=== PATIENT | female | born 1985 | race Caucasian/White ===

== ENCOUNTER 2024-10-25 05:28 | Emergency (ER) | payer SELFPAY ==
[2024-10-25] VITALS (18 sets, daily range): BP systolic 101–123; BP diastolic 54–79; PULSE 55–76; RESP 18; TEMP 36.2–36.7; O2SAT 96–99
--- NOTE | 2024-10-25 05:30 | RT.EKG_ITS ---
APPROVED REPORT Exam: Resting ECG Reason for Exam: epigastric pain Patient Location: E HR:61 bpm ECG Measurements Heart Rate 61 AXIS DC 137 P 64 QRSd 84 QRS 50 QT 405 T 38 QTc 410 Conclusion Sinus rhythm...normal P axis, V-rate 60- 99 Anteroseptal infarct, old...Q >40mS, V1-V2 I have reviewed and interpreted ECG and agree with software generated interpretation.
--- NOTE | 2024-10-25 05:42 | W.ED.GENAD ---
Discharge Plan Disposition Patient Disposition: Home Condition: Good Discharge Details Clinical Impression: Gastric irritation ED Provider: Joel Oliver Home Meds and New Rx's Prescriptions: New sucralfate [Carafate] 1 gram tablet 1 g PO BID Qty: 60 0RF pantoprazole [Protonix] 40 mg tablet,delayed release (DR/EC) 40 mg PO DAILY Qty: 60 0RF Discharge Instructions Instructions: Gastric Ulcer ED Additional Instructions: At this time your workup has returned reassuring. There is concern that your symptoms are being caused by gastric ulcer. Please avoid spicy foods, tomato-based foods, and citrus foods. Please take the medications as directed. If you notice any worsening of your symptoms, or any new symptoms such as vomiting, diarrhea, fever, chills, shortness of breath, chest pain, numbness, weakness, or fainting , please return immediately to the emergency department for reevaluation. Please follow up with your primary care provider as soon as possible for reassessment and reevaluation. As always, it was a pleasure participating in your medical care today. HPI General Date/Time Provider Initiated Documentation: 10/25/24 05:31. HPI Narrative: This is a very pleasant 39-year-old female with no significant past medical history except for tubal ligation, anxiety, bipolar, depression, ADHD and OCD, and PTSD who presents today for evaluation of epigastric stabbing sensation. It has been present for the last week, and is worse when she eats food, and improved when she lays down. She states that the pain comes and goes, does not radiate anywhere else. She denies any chest pain or shortness of breath. She denies any vomiting but does admit to nausea. She drinks a cup or 2 of coffee a day. She did denies any excessive spicy food or tomato-based product consumption. She states she has been under a fair bit of stress lately. Family history is positive for cardiac disease in her father. She denies any other complaints at this time. She denies any excessive alcohol use. Related Data Home Medications ?Medication ?Instructions ?Recorded ?Confirmed pantoprazole 40 mg tablet,delayed 40 mg PO DAILY #60 tabs 10/25/24 release (Protonix) sucralfate 1 gram tablet (Carafate) 1 g PO BID #60 tabs 10/25/24 Previous Rx's ?Medication ?Instructions ?Recorded pantoprazole 40 mg tablet,delayed 40 mg PO DAILY #60 tabs 10/25/24 release (Protonix) sucralfate 1 gram tablet (Carafate) 1 g PO BID #60 tabs 10/25/24 Allergies Allergy/AdvReac Type Severity Reaction Status Date / Time peanut Allergy Anaphylaxis Verified 10/25/24 06:04 tree nut Allergy Anaphylaxis Verified 10/25/24 06:04 morphine AdvReac Agitation Verified 10/25/24 06:04 General Stated Complaint: Abd Prob ARON: 3 Exam Narrative Exam Narrative: 1.Const: Well-nourished, Well-developed, appearing stated age 2.Eyes: PERRL, no conjunctival injection, and symmetrical lids. 3.ENT: Atraumatic external nose and ears. Moist MM. Neck: Symmetric, trachea midline, No thyromegaly. 4.CVS: +S1/S2, Peripheral pulses 2+ and equal in all extremities. Brisk capillary refill in all extremities. 5.RESP: Unlabored respiratory effort. Clear to auscultation bilaterally. No wheezes rales or rhonchi 6.GI: Soft, Nontender/Nondistended, No hepatosplenomegaly. No guarding or rebound. 7.MSK: Normocephalic/Atraumatic, Extremities w/o deformity or ttp No cyanosis or clubbing, Normal movement of all extremities 8.Skin: Warm, Dry. No rashes or lesions. 9.Neuro: quality liaison II-XII grossly intact. Sensation grossly intact, no focal neurologic deficits. 10.Psych: (AAO) x3. Appropriate mood and affect Course Vital Signs Vital signs: Vital Signs Temperature 36.2 C L 10/25/24 05:31 Pulse 73 10/25/24 05:31 Respiratory Rate 18 10/25/24 05:31 Blood Pressure 120/77 10/25/24 05:31 Pulse Oximetry 98 10/25/24 05:31 Temperature 36.2 C L 10/25/24 05:31 Pulse 70 10/25/24 05:34 Respiratory Rate 18 10/25/24 05:34 Blood Pressure 120/77 10/25/24 05:34 Pulse Oximetry 98 10/25/24 05:34 Pain Level 6 10/25/24 05:31 Medical Decision Making This is a very pleasant 39-year-old female with no significant past medical history except for tubal ligation, anxiety, bipolar, depression, ADHD and OCD, and PTSD who presents today for evaluation of epigastric stabbing sensation. It has been present for the last week, and is worse when she eats food, and improved when she lays down. She states that the pain comes and goes, does not radiate anywhere else. She denies any chest pain or shortness of breath. She denies any vomiting but does admit to nausea. She drinks a cup or 2 of coffee a day. She did denies any excessive spicy food or tomato-based product consumption. She states she has been under a fair bit of stress lately. Family history is positive for cardiac disease in her father. She denies any other complaints at this time. She denies any excessive alcohol use. Exam demonstrates well-appearing female, in no guarding or rebound in the abdomen. Negative Regalado sign. No pain at McBurney's point. Minimal achiness in the left upper quadrant. Differential is highest for gastric ulcer. Timing of symptomatology appears less consistent with duodenal ulcer. Symptoms inconsistent with severe pancreatitis, but mild pancreatitis remains on the differential. Will evaluate for these etiologies, give Carafate, Protonix, GI cocktail. We will treat her nausea with Zofran. Will get a screening EKG and troponin secondary to her family history, monitor closely and reassess. 6:37 AM Laboratory workup including troponins, lipase, electrolytes have returned normal. Patient is feeling much better after medications. Symptoms consistent with mild gastric ulcer. Will give Protonix and Carafate for home use. Discussed red flags for which to return. Symptoms inconsistent with ACS, pneumothorax, pancreatitis, cholecystitis. I have extensively reviewed the treatment plan and discharge instructions with the patient. I have addressed all patient concerns at this time. The patient was made aware of what symptoms to monitor for that would warrant a return to the emergency department. Discussed the plan with the patient, they demonstrate verbal understanding and agreement with our assessment and plan at this time. The documentation in this chart was dictated using [employer] dictation software. Please excuse any dictation errors. Quality:SDOH Health Related Social Needs: No Data to Display PFSH All Active Problems (Updated 10/25/24 @ 06:33 by Joel Oliver DO) Gastric irritation (Acute) Social History Smoking/Tobacco Use Status: Current every day Smoking risk assessment performed?: Yes Drug use: Rarely Do you feel safe in your relationship?: Yes
[2024-10-25] MEDS: Ondansetron 4 MG/2 ML VIAL IVP (05:53)
[2024-10-25] MEDS: Pantoprazole 40 MG VIAL IVP (05:55)
[2024-10-25] MEDS: Sucralfate 1 GM TAB PO (05:57)
[2024-10-25 05:58] LABS: Abs Immature Grans 0.05 10^3/uL (0.0-0.06); Absolute Basophil Count 0.06 10^3/uL (0.0-0.2); Absolute Eosinophil Count 0.22 10^3/uL (0.0-0.7); Absolute Lymphocyte Count 2.81 10^3/uL (1.2-3.4); Absolute Neutrophil Count 7.96 10^3/uL (1.2-6.7); Basophils % 0.5 %; Eosinophils % 1.8 %; HCT 45.3 % (36.0-46.0); HGB 15.1 g/dL (11.2-15.7); Immature Grans % 0.4 %; Lymphocytes % 23.2 %; MCH 30.7 pg (27.0-33.0); MCHC 33.3 % (32.0-36.0); MCV 92 fL (80-95); MPV 8.9 fL (8.0-11.0); Monocytes % 8.3 %; Neutrophils % 65.8 %; Platelet Count 244 10^3/uL (130-400); RBC 4.92 10^6/uL (3.93-5.22); RDW 13.3 % (11.7-14.6)
[2024-10-25] MEDS: MYLANTA 30 ML, LIDOCAINE 2% VISCOUS UD 15 ML PO (05:59)
[2024-10-25 06:25] LABS: ALT 19 U/L (14-59); AST 21 U/L (15-37); Albumin 3.7 g/dL (3.4-5.0); Alkaline Phosphatase 90 U/L (46-116); Anion Gap 8.5 mmol/L (3-11); BUN 12 mg/dL (7-18); Bilirubin, Total 0.3 mg/dL (0.2-1.0); CO2 26.5 mmol/L (21.0-32.0); CREATININE 0.7 mg/dL (0.55-1.02); Chloride 104 mmol/L (98-107); Estimated GFR 111.36 (mL/min/1.73m2); Glucose 102 mg/dL (74-106); Lipase 39 U/L (<78); Potassium 3.9 mmol/L (3.5-5.1); Sodium 139 mmol/L (136-145); Total Protein 7.1 g/dL (6.4-8.2)
[2024-10-25 06:29] LABS: Troponin I < 4 ng/L (<or=51)
== END 2024-10-25 07:04 | disposition home or self-care (01) ==
LOC: ER 07:14
PROVIDERS: Emergency Provider Student in an Organized Health Care Education/Training Program
DX: K31.89 Other diseases of stomach and duodenum (principal)
CPT/HCPCS: 99283; 99284; 96374; 96375; 80053; 83690; 93005; 84484; 85025; 93010; J2405; J2470